=== PATIENT | male | born 2000 | race Hispanic/Latino ===

== ENCOUNTER 2023-09-04 20:26 | Emergency (ER) | payer SELFPAY ==
[~2023-09-04] VITALS: Ht 177.8 cm; Wt 100.2 kg
[2023-09-04] MEDS ORDERED: CEPHALEXIN250 MG PO (21:02)
[2023-09-04] MEDS ORDERED: AMOXICILLIN/CLAVULANATE K 875 MG HOME.PACK PO ONE (21:15)
[2023-09-04] MEDS ORDERED: AMOX TR-K CLV1 EAC1 PO (21:15)
[2023-09-04 21:50] VITALS: BP 132/87
== END 2023-09-04 21:50 | disposition home or self-care (01) ==
LOC: ED 20:26
DX: L60.0 Ingrowing nail (principal)